=== PATIENT | female | born 1995 | race Caucasian/White ===

== ENCOUNTER → 2017-02-23 | Outpatient (CLI) | payer OTHER | END | disposition home or self-care (01) | LOC: C.RDSM 13:43 | PROVIDERS: ATTEND Physical Medicine & Rehabilitation Sports Medicine | DX: M25.512 Pain in left shoulder (principal) ==

== ENCOUNTER → 2017-03-01 | Outpatient (CLI) | payer OTHER ==
--- NOTE | 2017-03-01 11:31 | DIAGNOSTIC IMAGING REPORT ---
LEFT UPPER EXT JOINT WITHOUT CLINICAL HISTORY: Left shoulder instability. Dislocation. COMPARISON STUDY: Conventional radiographic study dated 02/23/2017 FINDINGS: Imaging was performed in sagittal, coronal, and axial planes. There is marrow edema involving the left humeral head at the 3:00 position superiorly. This is likely secondary to a prior dislocation as is described clinically. The bicipital tendon appears normal. There is no evidence of rotator cuff tear. There is fluid present at the level of the inferior glenohumeral joint as visualized on the coronal images. An inferior labral tear is suspected. There is a probable small sliver-like fracture involving the inferior scapular glenoid. The findings are consistent with a Bankart lesion, possibly a bony Bankart. IMPRESSION: 1. Normal bicipital tendon. No evidence of rotator cuff tear 2. Hill-Sachs injury marrow edema pattern within the humeral head 3. Bankart lesion. This may include a sliver-like bony component. Electronically signed by: Bucky Myers M.D. 03/01/2017 11:30 AM Dictated Date/Time: 03/01/2017 11:20 AM
== END | disposition home or self-care (01) ==
LOC: C.MRIBC 10:17
PROVIDERS: ATTEND Family Medicine
DX: M25.512 Pain in left shoulder (principal); S43.012A Anterior subluxation of left humerus, initial encounter; X58.XXXA Exposure to other specified factors, initial encounter